=== PATIENT | male | born 1960 | race Caucasian/White ===

== ENCOUNTER 2020-03-07 15:00 | Inpatient (IN) ==
[2020-03-07] MEDS ORDERED: *HR* FentaNYL (PF) 100 MCG/2 ML VIAL ONE (15:27)
[2020-03-07] MEDS ORDERED: *HR* Midazolam HCl 2 MG/2 ML VIAL ONE (15:27)
[2020-03-07] MEDS ORDERED: ISOVUE-370 200 ML INFUS..BTL ONE ×3 (15:27→16:32)
[2020-03-07] MEDS ORDERED: 0.9 % Sodium Chloride 2,000 ML ONE (15:27)
[2020-03-07] MEDS ORDERED: *HR* Heparin 10,000 UNIT/10 ML VIAL ONE (15:27)
[2020-03-07] MEDS ORDERED: Heparin 1,000 UNITS/500 mL 500 ML ONE ×2 (15:27→17:02)
[2020-03-07] MEDS ORDERED: Nitroglycerin 1,000 MCG/10 ML VIAL IV ONE ×2 (15:28→16:20)
[2020-03-07] MEDS ORDERED: *HR* Adenosine 6 MG/2 ML VIAL IVP ONE ×2 (16:22→16:38)
[2020-03-07] MEDS ORDERED: Tirofiban 12.5 MG/250ML 12.5 MG/250 ML BAG ONE (16:42)
[2020-03-07] MEDS ORDERED: Perflutren Lipid Microsphere 1.3 ML in 0.9 % Sodium Chloride 8.7 ML IVP PRN (17:01)
[2020-03-07] MEDS ORDERED: 0.9 % Sodium Chloride 1,000 ML IVC SCH (17:30)
[2020-03-07] MEDS ORDERED: Tirofiban 12.5 MG/250ML 12.5 MG/250 ML BAG IVC SCH (17:30)
[2020-03-07] MEDS: Ondansetron 4 MG/2 ML VIAL IVP PRN (18:59)
[2020-03-07] MEDS: Gabapentin 100 MG CAPSULE PO SCH (19:45)
[2020-03-07] MEDS: carvediloL 6.25 MG TABLET PO SCH (19:45)
[2020-03-07] MEDS: *HR* Ticagrelor 90 MG TABLET PO SCH (19:45)
[2020-03-07] MEDS: *HR* LORazepam 0.5 MG TABLET PO SCH (19:45)
[2020-03-07] MEDS: traZODone 50 MG TABLET PO SCH (19:45)
[2020-03-08] MEDS: Acetaminophen 325 MG TABLET PO PRN ×2 (04:32→16:22)
[2020-03-08 05:57] LABS: Basophils % 0.2 %; Hematocrit 49.6 % (37.5-50.1); Hemoglobin 16.8 g/dL (12.9-16.9); Immature Granulocytes % 0.4 % (0-4); Lymphocytes # 2.2 K/mcL (0.6-4.6); Lymphocytes % 11.1 %; Mean Corpuscular HGB Conc 33.9 g/dL (31.6-35.5); Mean Corpuscular Hemoglobin 31.4 pg (28.0-33.3); Mean Corpuscular Volume 92.7 fL (83.0-100.0); Monocytes # 2.4 K/mcL (0.0-1.3); Monocytes % 11.8 %; Neutrophils # 15.3 K/mcL (1.6-8.9); Platelet Count 366 K/mcL (140-400); Red Blood Count 5.35 M/mcL (4.19-5.50); Red Cell Distribution Width 12.5 % (11.5-14.5); Segmented Neutrophils % 76.5 %; White Blood Count 20.1 K/mcL (4.3-11.1)
[2020-03-08 06:10] LABS: Troponin I > 73.00 ng/mL (< 0.04)
[2020-03-08 06:21] LABS: BUN/Creatinine Ratio 14 (6-26); Blood Urea Nitrogen 13 mg/dL (6-20); Calcium 9.7 mg/dL (8.6-10.3); Carbon Dioxide 25 mEq/L (23-29); Chloride 100 mEq/L (98-107); Glucose 136 mg/dL (70-105); Osmolality,Calculated 286 (280-300); Sodium 137 mEq/L (136-145); eGFR For African Americans > 60 (> 60); eGFR For Non-African Americans > 60 (> 60)
[2020-03-08 06:22] LABS: BUN/Creatinine Ratio 13 (6-26); Blood Urea Nitrogen 12 mg/dL (6-20); eGFR For African Americans > 60 (> 60); eGFR For Non-African Americans > 60 (> 60)
[2020-03-08] MEDS: Gabapentin 100 MG CAPSULE PO SCH ×2 (08:21→23:03)
[2020-03-08] MEDS: carvediloL 6.25 MG TABLET PO SCH ×3 (08:21→17:51)
[2020-03-08] MEDS: Aspirin 81 MG TAB.CHEW PO SCH (08:21)
[2020-03-08] MEDS: *HR* Ticagrelor 90 MG TABLET PO SCH ×2 (08:21→19:49)
[2020-03-08] MEDS: *HR* LORazepam 0.5 MG TABLET PO SCH ×2 (08:21→23:03)
[2020-03-08] MEDS ORDERED: Potassium Chloride 40 MEQ, Lidocaine 1% 2 ML in 0.9 % Sodium Chloride 500 ML IVPB ONE (08:28)
[2020-03-08] MEDS: Ondansetron 4 MG/2 ML VIAL IVP PRN ×2 (09:22→20:28)
[2020-03-08] MEDS: lisinopriL 5 MG TABLET PO SCH (11:10)
[2020-03-08] MEDS: Nitroglycerin 0.4 MG TAB.SUBL SL PRN ×4 (11:30→19:53)
[2020-03-08] MEDS ORDERED: 0.9 % Sodium Chloride 1,000 ML ONE ×4 (11:40→20:28)
[2020-03-08] MEDS ORDERED: *HR* Midazolam HCl 2 MG/2 ML VIAL ONE ×2 (11:44→20:28)
[2020-03-08] MEDS ORDERED: *HR* FentaNYL (PF) 100 MCG/2 ML VIAL ONE ×2 (11:45→20:28)
[2020-03-08] MEDS ORDERED: ISOVUE-370 200 ML INFUS..BTL ONE ×3 (12:06→20:22)
[2020-03-08] MEDS ORDERED: *HR* Bivalirudin 250 MG VIAL IVC ONE (12:06)
[2020-03-08] MEDS ORDERED: Nitroglycerin 1,000 MCG/10 ML VIAL IV ONE ×2 (12:26→20:22)
[2020-03-08] MEDS ORDERED: Heparin 1,000 UNITS/500 mL 500 ML ONE ×2 (12:26→20:21)
[2020-03-08] MEDS ORDERED: *HR* Heparin 10,000 UNIT/10 ML VIAL ONE ×2 (12:26→20:21)
[2020-03-08] MEDS: Isosorbide MONOnitrate (24 HR) 30 MG TAB.ER.24H PO SCH (13:51)
[2020-03-08 14:13] LABS: Hematocrit 45.4 % (37.5-50.1); Hemoglobin 15.5 g/dL (12.9-16.9)
[2020-03-08] MEDS ORDERED: Ipratropium/Albuterol Neb 3 ML IH PRN (17:31)
[2020-03-08 18:35] LABS: Adenovirus Not Detected (Not Detect); Bordetella Pertussis Not Detected (Not Detect); Chlamydophila pneumoniae Not Detected (Not Detect); Coronavirus 229E Not Detected (Not Detect); Coronavirus HKU1 Not Detected (Not Detect); Coronavirus NL63 Not Detected (Not Detect); Coronavirus OC43 Not Detected (Not Detect); Human Metapneumovirus Not Detected (Not Detect); Human Rhinovirus/Enterovirus Not Detected (Not Detect); Influenza A Subtype 2009 H1 Not Detected (Not Detect); Influenza B Not Detected (Not Detect); Mycoplasma pneumoniae Not Detected (Not Detect); Parainfluenza Virus 1 Not Detected (Not Detect); Parainfluenza Virus 2 Not Detected (Not Detect); Parainfluenza Virus 3 Not Detected (Not Detect); Parainfluenza Virus 4 Not Detected (Not Detect); Respiratory Syncytial Virus Not Detected (Not Detect); SARS-CoV-2 Not Detected (Not Detect)
[2020-03-08] MEDS ORDERED: Morphine Sulfate 2 MG/ML SYRINGE IVP ONE (20:16)
[2020-03-08] MEDS ORDERED: Ketorolac 30 MG/ML VIAL IVP ONE (20:39)
[2020-03-08] MEDS ORDERED: Furosemide 40 MG/4 ML VIAL ONE (21:10)
[2020-03-08] MEDS: Colchicine 0.6 MG TABLET PO SCH (23:03)
[2020-03-08] MEDS: traZODone 50 MG TABLET PO SCH (23:03)
[2020-03-09 06:32] LABS: Basophils % 0.2 %; Eosinophils % 0.1 %; Hemoglobin 14.8 g/dL (12.9-16.9); Immature Granulocytes % 0.4 % (0-4); Mean Corpuscular HGB Conc 33.6 g/dL (31.6-35.5); Mean Corpuscular Hemoglobin 32.2 pg (28.0-33.3); Mean Corpuscular Volume 95.9 fL (83.0-100.0); Mean Platelet Volume 10.2 fL (9.4-12.4); Monocytes # 2.5 K/mcL (0.0-1.3); Monocytes % 13.9 %; Neutrophils # 13.5 K/mcL (1.6-8.9); Platelet Count 244 K/mcL (140-400); Red Blood Count 4.59 M/mcL (4.19-5.50); Red Cell Distribution Width 12.7 % (11.5-14.5); Segmented Neutrophils % 74.4 %; White Blood Count 18.1 K/mcL (4.3-11.1)
[2020-03-09 06:47] LABS: BUN/Creatinine Ratio 18 (6-26); Blood Urea Nitrogen 17 mg/dL (6-20); Calcium 8.9 mg/dL (8.6-10.3); Carbon Dioxide 28 mEq/L (23-29); Chloride 102 mEq/L (98-107); Glucose 109 mg/dL (70-105); Osmolality,Calculated 288 (280-300); Potassium 3.3 mEq/L (3.5-5.1); Sodium 138 mEq/L (136-145); eGFR For African Americans > 60 (> 60); eGFR For Non-African Americans > 60 (> 60)
[2020-03-09] MEDS: Ketorolac 15 MG/ML VIAL IVP PRN ×2 (07:38→20:51)
[2020-03-09] MEDS: Isosorbide MONOnitrate (24 HR) 30 MG TAB.ER.24H PO SCH (07:47)
[2020-03-09] MEDS: *HR* Ticagrelor 90 MG TABLET PO SCH ×2 (07:47→20:50)
[2020-03-09] MEDS: Colchicine 0.6 MG TABLET PO SCH (07:47)
[2020-03-09] MEDS: lisinopriL 5 MG TABLET PO SCH (07:47)
[2020-03-09] MEDS: *HR* LORazepam 0.5 MG TABLET PO SCH ×2 (07:47→20:50)
[2020-03-09] MEDS: Gabapentin 100 MG CAPSULE PO SCH ×2 (07:47→20:51)
[2020-03-09] MEDS: Aspirin 81 MG TAB.CHEW PO SCH (07:47)
[2020-03-09] MEDS: carvediloL 6.25 MG TABLET PO SCH ×2 (08:00→17:56)
[2020-03-09] MEDS ORDERED: Furosemide 40 MG/4 ML VIAL IVP SCH (09:00)
[2020-03-09] MEDS ORDERED: Potassium Chloride 20 MEQ, Lidocaine 1% 2 ML in 0.9 % Sodium Chloride 250 ML IVPB ONE (09:43)
[2020-03-09] MEDS: Isosorbide MONOnitrate (24 HR) 30 MG TAB.ER.24H PO ONE ×2 (10:06→14:16)
[2020-03-09] MEDS: lisinopriL 5 MG TABLET PO ONE ×2 (10:06→10:24)
[2020-03-09] MEDS: traZODone 50 MG TABLET PO SCH (20:51)
[2020-03-10 06:00] LABS: Basophils % 0.3 %; Eosinophils # 0.3 K/mcL (0.0-0.6); Eosinophils % 2.3 %; Hematocrit 39.3 % (37.5-50.1); Hemoglobin 13.2 g/dL (12.9-16.9); Immature Granulocytes % 0.3 % (0-4); Lymphocytes # 2.1 K/mcL (0.6-4.6); Mean Corpuscular HGB Conc 33.6 g/dL (31.6-35.5); Mean Corpuscular Hemoglobin 32.1 pg (28.0-33.3); Mean Corpuscular Volume 95.6 fL (83.0-100.0); Monocytes # 1.8 K/mcL (0.0-1.3); Monocytes % 11.9 %; Neutrophils # 10.4 K/mcL (1.6-8.9); Platelet Count 223 K/mcL (140-400); Red Blood Count 4.11 M/mcL (4.19-5.50); Red Cell Distribution Width 12.5 % (11.5-14.5); Segmented Neutrophils % 71.2 %; White Blood Count 14.7 K/mcL (4.3-11.1)
[2020-03-10 06:17] LABS: BUN/Creatinine Ratio 23 (6-26); Blood Urea Nitrogen 21 mg/dL (6-20); Calcium 8.7 mg/dL (8.6-10.3); Carbon Dioxide 25 mEq/L (23-29); Chloride 101 mEq/L (98-107); Glucose 95 mg/dL (70-105); Osmolality,Calculated 281 (280-300); Potassium 3.2 mEq/L (3.5-5.1); Sodium 134 mEq/L (136-145); eGFR For African Americans > 60 (> 60); eGFR For Non-African Americans > 60 (> 60)
[2020-03-10] MEDS ORDERED: Potassium Chloride 20 MEQ, Lidocaine 1% 2 ML in 0.9 % Sodium Chloride 250 ML IVPB ONE ×2 (08:01→11:35)
[2020-03-10] MEDS ORDERED: lisinopriL 5 MG TABLET PO SCH ×2 (09:00)
[2020-03-10] MEDS ORDERED: Isosorbide MONOnitrate (24 HR) 30 MG TAB.ER.24H PO SCH (09:00)
[2020-03-10] MEDS: carvediloL 6.25 MG TABLET PO SCH ×2 (09:14→18:17)
[2020-03-10] MEDS: Aspirin 81 MG TAB.CHEW PO SCH (09:15)
[2020-03-10] MEDS: *HR* Ticagrelor 90 MG TABLET PO SCH ×2 (09:16→20:31)
[2020-03-10] MEDS: Gabapentin 100 MG CAPSULE PO SCH ×2 (09:16→20:30)
[2020-03-10] MEDS: Colchicine 0.6 MG TABLET PO SCH (09:16)
[2020-03-10] MEDS: *HR* LORazepam 0.5 MG TABLET PO SCH ×2 (09:22→20:30)
[2020-03-10] MEDS ORDERED: Ipratropium/Albuterol Neb 3 ML IH PRN (11:35)
[2020-03-10] MEDS ORDERED: Nitroglycerin 0.4 MG TAB.SUBL SL PRN (11:35)
[2020-03-10] MEDS ORDERED: Ketorolac 15 MG/ML VIAL IVP PRN (11:35)
[2020-03-10] MEDS ORDERED: Ondansetron 4 MG/2 ML VIAL IVP PRN (11:35)
[2020-03-10] MEDS ORDERED: Acetaminophen 325 MG TABLET PO PRN (11:35)
[2020-03-10] MEDS: traZODone 50 MG TABLET PO SCH (20:31)
[2020-03-11 05:32] LABS: Basophils # 0.1 K/mcL (0.0-0.2); Basophils % 0.4 %; Eosinophils # 0.7 K/mcL (0.0-0.6); Eosinophils % 5.4 %; Hematocrit 41.6 % (37.5-50.1); Hemoglobin 13.9 g/dL (12.9-16.9); Immature Granulocytes % 0.3 % (0-4); Lymphocytes # 2.1 K/mcL (0.6-4.6); Lymphocytes % 15.5 %; Mean Corpuscular HGB Conc 33.4 g/dL (31.6-35.5); Mean Corpuscular Hemoglobin 32.1 pg (28.0-33.3); Mean Corpuscular Volume 96.1 fL (83.0-100.0); Mean Platelet Volume 10.6 fL (9.4-12.4); Monocytes # 1.7 K/mcL (0.0-1.3); Monocytes % 12.1 %; Platelet Count 283 K/mcL (140-400); Red Blood Count 4.33 M/mcL (4.19-5.50); Red Cell Distribution Width 12.3 % (11.5-14.5); Segmented Neutrophils % 66.3 %; White Blood Count 13.6 K/mcL (4.3-11.1)
[2020-03-11 05:51] LABS: BUN/Creatinine Ratio 17 (6-26); Blood Urea Nitrogen 16 mg/dL (6-20); Calcium 9.2 mg/dL (8.6-10.3); Carbon Dioxide 24 mEq/L (23-29); Chloride 105 mEq/L (98-107); Glucose 102 mg/dL (70-105); Osmolality,Calculated 287 (280-300); Potassium 3.7 mEq/L (3.5-5.1); Sodium 138 mEq/L (136-145); eGFR For African Americans > 60 (> 60); eGFR For Non-African Americans > 60 (> 60)
[2020-03-11] MEDS: Gabapentin 100 MG CAPSULE PO SCH ×2 (08:23→19:44)
[2020-03-11] MEDS: *HR* LORazepam 0.5 MG TABLET PO SCH ×2 (08:23→19:44)
[2020-03-11] MEDS: carvediloL 6.25 MG TABLET PO SCH (08:23)
[2020-03-11] MEDS: *HR* Ticagrelor 90 MG TABLET PO SCH ×2 (08:24→19:45)
[2020-03-11] MEDS ORDERED: Isosorbide MONOnitrate (24 HR) 30 MG TAB.ER.24H PO SCH (09:00)
[2020-03-11] MEDS ORDERED: Colchicine 0.6 MG TABLET PO SCH ×2 (09:00→21:00)
[2020-03-11] MEDS ORDERED: lisinopriL 5 MG TABLET PO SCH (09:00)
[2020-03-11] MEDS ORDERED: Aspirin 81 MG TAB.CHEW PO SCH (09:00)
[2020-03-11] MEDS ORDERED: carvediloL 6.25 MG TABLET PO ONE (10:44)
[2020-03-11] MEDS ORDERED: Spironolactone 25 MG TABLET PO SCH (10:45)
[2020-03-11] MEDS ORDERED: FLU Vac QV 20-21 (6Month+)/PF 0.5 ML SYRINGE IM ONE (13:45)
[2020-03-11] MEDS ORDERED: carvediloL 25 MG TABLET PO SCH (17:00)
[2020-03-11] MEDS: traZODone 50 MG TABLET PO SCH (19:44)
[2020-03-12 00:16] VITALS: BP 164/100
== END 2020-03-12 12:20 | disposition home or self-care (01) | DRG 246 ==
LOC: ICNU 18:08
PROVIDERS: ADMIT Internal Medicine Cardiovascular Disease; ATTEND Internal Medicine Cardiovascular Disease